=== PATIENT | male | born 1970 | race Caucasian/White ===

== ENCOUNTER 2019-09-13 18:54 | Inpatient (IN) | payer OTHER, SELFPAY ==
--- NOTE | ~2019-09-13 | XR_ITS ---
EXAMINATION: XR chest 1V portable EXAM DATE: 09/13/2019 21:01 INDICATION: Right Thigh necrotizing fasciitis. Preoperative. TECHNIQUE: Portable AP frontal chest x-ray was obtained. Comparison is made to prior examination from 02/09/2017. FINDINGS: The lungs are clear. There are no pleural effusions. Cardiac silhouette is prominent but magnified on this AP technique. There is no pneumothorax suspected. The bones and soft tissues are unremarkable. There is no significant interval change. IMPRESSION: No acute cardiopulmonary findings. Reviewed, dictated and finalized at location G.
--- NOTE | ~2019-09-13 | CT_ITS ---
EXAMINATION: CT pelvis w con EXAM DATE: 09/13/2019 20:12 INDICATION: Right thigh pain. Necrotizing fasciitis. TECHNIQUE: Spiral CT pelvis w con was performed following intravenous injection of 100 mL Omnipaque 3 50. Axial, coronal and sagittal images were reviewed. The dose-length product (DLP) for this examin ation was 2117.24 mGy-cm. The exposure was tailored according to patient size (auto mA exposure cont rol), and iterative reconstruction (ASIR) was used as additional dose reduction technique. There is no prior study for comparison. FINDINGS: In the inner upper most aspect of the right thigh, below the perineum there is a region co ntaining pockets of gas and inflammation measuring 7.4 x 2.0 cm, with overlying skin thickening. Appe arance is consistent with necrotizing fasciitis. I discussed this finding with Shauna Tyler MD at 09/13/2019 20:16 CDT. The bladder and prostate are unremarkable. There is mild scattered colonic diverticulosis. There is no adjacent inflammatory change to suggest diverticulitis. Visualized bowel is unremarkable. There i s no hydronephrosis or pelvic lymphadenopathy. IMPRESSION: Findings consistent with necrotizing fasciitis of the inner upper aspect right thigh. Reviewed, dictated and finalized at location G.
[2019-09-13 19:00] VITALS: BP 174/98; PULSE 120; RESP 20; TEMP 37; O2SAT 97
--- NOTE | 2019-09-13 19:07 | ED.GENADULT ---
HPI - General Adult General Chief complaint: Skin/Abscess/Foreign Body Stated complaint: Boil back of R leg Time Seen by Provider: 09/13/19 19:06 Source: patient and family Mode of arrival: ambulatory Limitations: no limitations History of Present Illness HPI narrative: Patient is a 49-year-old male who presents for evaluation of irritation to her right inner thigh. Patient reports a small boil appeared on his right thigh 3 days ago, the area has become increasingly painful, with clearish drainage, now worsening redness over the right thigh. Patient denies scrotal involvement. No pain with bowel movement. He reports a fever of 101 Fahrenheit today. No nausea or vomiting. Patient is otherwise feeling well. No history of skin infections in the past. Patient states he recently had blood work done by primary care provider and he has not. Patient did take 2 days of doxycycline which he had at home, left over from a sinus infection, which did not seem to improve the area. Related Data Allergies Allergy/AdvReac Type Severity Reaction Status Date / Time No Known Allergies Allergy Verified 09/13/19 19:27 Review of Systems Review of Systems: Narrative: CONSTITUTIONAL: Reports fever EYES: Denies visual changes, redness, or discharge. ENT: Reports sinus congestion, denies sore throat CARDIOVASCULAR: Denies chest pain, palpitations, or edema. RESPIRATORY: Denies cough or dyspnea. GASTROINTESTINAL: Denies abdominal pain, nausea, vomiting, or diarrhea. GENITOURINARY: Denies dysuria or hematuria. SKIN: Reports area of redness, sore to right inner thigh MUSCULOSKELETAL: Denies back pain, joint pain, or myalgia. NEUROLOGIC: Denies headache, numbness, or weakness. [facility] Past Medical History Medical History (Updated 09/13/19 @ 21:02 by Shauna Tyler MD) Asthma Surgical History Surgical History (Updated 09/13/19 @ 19:22 by Shauna Tyler MD) H/O inguinal hernia repair History of vasectomy Social History Social History (Updated 09/13/19 @ 19:22 by Shauna Tyler MD) Smoking status: Never smoker Alcohol intake: current Alcohol use details: social Substance use: never Living arrangements: with family Gender identity (if verbalized by the patient): Male Exam Narrative: Exam Narrative: GENERAL: Awake, alert, conversant HEAD: Normocephalic, atraumatic. EYES: PERRLA and EOMI. ENT: Nares clear, no rhinorrhea or epistaxis. Mucous membranes moist. NECK: Supple. CHEST: No respiratory distress, breathing even and non labored HEART: Regular rate, sinus rhythm ABDOMEN: Obese abdomen, non distended, non tender EXTREMITIES: Normal range of motion. No edema. SKIN: Area of erythema to the right inner thigh approximately 15 cm x 20 cm, no scrotal involvement, no crepitus, area of induration, slight discoloration of skin with serous drainage present. No blistering or bullae. Tender to palpation. No areas of fluctuance. NEURO:No focal deficits. Alert and oriented x3 Course Vital Signs Vital signs: Vital Signs Temperature 37.0 C 09/13/19 19:00 Pulse Rate 120 H 09/13/19 19:00 Respiratory Rate 09/13/19 19:00 Blood Pressure 174/98 H 09/13/19 19:00 Pulse Oximetry 97 09/13/19 19:00 Temperature 37.0 C 09/13/19 19:00 Pulse Rate 120 H 09/13/19 19:00 Respiratory Rate 09/13/19 19:00 Blood Pressure 174/98 H 09/13/19 19:00 Pulse Oximetry 97 09/13/19 19:00 Medical Decision Making MDM Narrative Medical decision making narrative: Patient presented for evaluation of pain, irritation to right inner thigh. At the time of assessment, ABCs are intact, vital signs notable for tachycardia. Patient is otherwise well-appearing, clinical examination is notable for area of cellulitis, induration and tenderness that is very large in diameter to the right medial thigh, no extension into the scrotum. No crepitus. Given location, there is concern for necrotizing fasciitis. Patient states that he
[2019-09-13 19:31] LABS: Basophils Absolute Auto 0.1 K/mm3 (0.0-0.1); Basophils Percent Auto 0.4 % (0.2-1.2); Eosinophils Absolute Auto 0.3 K/mm3 (0-0.3); Eosinophils Percent Auto 2.1 % (0-4.4); Hemoglobin 15.2 g/dL (14.0-18.0); Immature Granulocyte Absolute 0.06 K/mm3 (0.00-0.031); Immature Granulocyte Percent A 0.4 % (0-0.5); Lymphocytes Percent Auto 10.3 % (18.3-44.2); Mean Corpuscular Hemoglobin 29.9 pg (26-34); Mean Corpuscular Volume 90.4 fl (80-100); Mean Platelet Volume 10.1 fl (7.4-10.4); Monocytes Absolute Auto 1.4 K/mm3 (0.1-0.6); Monocytes Percent Auto 8.3 % (2.6-8.5); Neutrophils Percent Auto 78.5 % (45.5-73.1); Platelet Count Result 225 k/mm3 (150-375); Red Blood Count 5.09 M/mm3 (4.6-6.20); Red Cell Distribution Width 12.7 % (11.5-14.5); White Blood Count 16.5 K/mm3 (4.5-10.0)
[2019-09-13 19:42] LABS: Lactic Acid Reflex 1.1 mmol/L (0.7-2.1)
[2019-09-13] MEDS: SODIUM CHLORIDE 0.9% IV 1,000 ML 999 ML IV CONT ×3 (19:47→23:18)
[2019-09-13 19:49] LABS: Blood Urea Nitrogen 7 mg/dL (9-20); Carbon Dioxide 24 mmol/L (22-30); Chloride 101 mmol/L (98-107); Estimated CRCL calculation 165 ml/min; Estimated Glomerular Filt Rate > 60; Glucose 129 mg/dL (75-110); Potassium 3.6 mmol/L (3.4-5.0); Sodium 134 mmol/L (137-145)
[2019-09-13 19:57] LABS: CRP 22.7 mg/dL (<1.0)
[2019-09-13 21:35] VITALS: BP 141/91; PULSE 109; RESP 18; O2SAT 97
[2019-09-13 21:48] VITALS: BMI 61.0
[2019-09-13 21:54] VITALS: BP 137/90; PULSE 109; RESP 20; TEMP 36.6; O2SAT 98; BMI 55.3
[2019-09-13 22:00] VITALS: PULSE 109
--- NOTE | 2019-09-13 22:04 | ADMGEN ---
This patient, Jayna Perez, was admitted to IMU Room 201-01 at 2145. Patient/family oriented to hospital policies and general routines including ID bracelet, bed and alarms, visiting hours, pain management, procedures, bathroom and other care routines, personal items, smoking policy, room service/diet, and visiting hours. Valuables list has been completed. Information on how to activate the Rapid Response Team has been discussed. Patient/Family are encouraged to report perceived risks to care and to ask questions if they do not understand what they are told or what they should do.
[2019-09-13] MEDS: CLINDAMYCIN 900 MG/NS 50 ML 900 MG/50 ML PIGGYBACK 50 MG IVPB (23:17)
[2019-09-13 23:30] VITALS: BP 136/93; PULSE 104; RESP 20; TEMP 36.7; O2SAT 99
[2019-09-13 23:44] LABS: Add Urine Microscopic? NO; Appearance Urine Clear (Clear); Bilirubin Urine Negative (Negative); Blood Urine Negative (Negative); Color Urine Straw (Yellow); Glucose Urine UA Negative (Negative); Ketones Urine Negative (Negative); Leukocyte Esterase Ur Negative LEU/UL (Negative); Nitrate Urine Negative (Negative); Protein Urine Negative (Negative); Specific Grav Ur 1.019 (1.001-1.035); Urobilinogen Urine Negative mg/dL (<2.0)
[2019-09-14] VITALS (19 sets, daily range): BP systolic 123–155; BP diastolic 68–94; PULSE 86–118; RESP 16–24; TEMP 36.2–38.4; O2SAT 94–100
[2019-09-14] MEDS: LACTATED RINGERS 1,000 ML 125 ML IV CONT (01:07)
[2019-09-14 05:00] LABS: Basophils Percent Auto 0.3 % (0.2-1.2); Eosinophils Absolute Auto 0.3 K/mm3 (0-0.3); Eosinophils Percent Auto 2.1 % (0-4.4); Hematocrit 39.7 % (42.0-52.0); Hemoglobin 13.3 g/dL (14.0-18.0); Immature Granulocyte Absolute 0.13 K/mm3 (0.00-0.031); Immature Granulocyte Percent A 0.8 % (0-0.5); Lymphocytes Absolute Auto 1.21 K/mm3 (0.9-3.2); Lymphocytes Percent Auto 7.9 % (18.3-44.2); Mean Corpuscular HGB Conc 33.5 g/dl (32-36); Mean Corpuscular Hemoglobin 30.2 pg (26-34); Mean Corpuscular Volume 90.2 fl (80-100); Monocytes Absolute Auto 1.3 K/mm3 (0.1-0.6); Monocytes Percent Auto 8.5 % (2.6-8.5); Neutrophils Absolute Auto 12.4 K/mm3 (1.3-6.7); Neutrophils Percent Auto 80.4 % (45.5-73.1); Platelet Count Result 189 k/mm3 (150-375); Red Cell Distribution Width 12.7 % (11.5-14.5); White Blood Count 15.4 K/mm3 (4.5-10.0)
[2019-09-14 05:11] LABS: Blood Urea Nitrogen 6 mg/dL (9-20); Calcium 8.6 mg/dL (8.4-10.2); Carbon Dioxide 27 mmol/L (22-30); Chloride 101 mmol/L (98-107); Estimated CRCL calculation 182 ml/min; Estimated Glomerular Filt Rate > 60; Glucose 134 mg/dL (75-110); Potassium 3.5 mmol/L (3.4-5.0); Sodium 136 mmol/L (137-145)
[2019-09-14] MEDS: CLINDAMYCIN 900 MG/NS 50 ML 900 MG/50 ML PIGGYBACK 50 MG IVPB ×2 (06:14→14:02)
--- NOTE | 2019-09-14 08:54 | PM.IMHP ---
H&P: HPI History of Present Illness Chief complaint: Necrotizing Fasciitis Narrative: Jayna Perez is a 49 year old male presenting to ED c/o worsening R inner thigh pain, swelling since last . Pt reports area started as small pimple and has progressively worsened over the weekend. Pt reports fevers and chills over last 48 hours. Pt denies any previous episodes. Review of Systems Constitutional: Constitutional: Reports chills, Reports fatigue and Reports weakness ENT: Reports Normal hearing present Cardiovascular: Cardiovascular: Denies chest pain and Denies palpitations Respiratory: Respiratory: Denies cough and Denies dyspnea Gastrointestinal: Gastrointestinal: Denies abdominal pain, Denies bloating, Denies constipation, Denies diarrhea, Denies nausea and Denies vomiting Genitourinary: Genitourinary: Denies dysuria Musculoskeletal: Musculoskeletal: Reports no additional musculoskeletal complaints Integumentary/Breasts: Skin/Breast: Reports erythema and Denies rash Neurologic: Denies headache(s) Psychiatric: Psychiatric: Denies no additional psychiatric complaints PMF Past Medical History Medical History Asthma Surgical History Surgical History H/O inguinal hernia repair History of vasectomy Family History Family History Mother Diabetes mellitus Grandparent Diabetes mellitus Father Coronary artery disease Social History Social History Smoking status: Never smoker Alcohol intake: former Alcohol use details: social Substance use: never Living arrangements: with family Gender identity (if verbalized by the patient): Male Spiritual care concerns: No Meds Home Medications and Allergies Home Medications Medication Instructions Recorded Confirmed Type fluticasone propionate [Flonase 50 mcg INTRANASAL DAILY 09/13/19 09/13/19 History Allergy Relief] losartan 100 mg PO DAILY 09/13/19 09/13/19 History Allergies Allergy/AdvReac Type Severity Reaction Status Date / Time No Known Allergies Allergy Verified 09/13/19 19:27 Vital Signs Vital Signs - 24 hr 09/13/19 19:00 09/13/19 21:35 09/13/19 21:54 Temperature 37.0 C 36.6 C Pulse Rate 120 H 109 H 109 H Respiratory Rate 20 18 20 Blood Pressure 174/98 H 141/91 H 137/90 Pulse Oximetry 97 97 98 09/13/19 22:00 09/13/19 23:30 09/14/19 00:00 Temperature 36.7 C Pulse Rate 109 H 104 H 101 H Respiratory Rate 20 Blood Pressure 136/93 H Pulse Oximetry 99 09/14/19 02:00 09/14/19 04:00 09/14/19 06:00 Temperature 36.7 C Pulse Rate 105 H 96 96 Respiratory Rate 20 Blood Pressure 123/69 Pulse Oximetry 97 Exam Const: General: no acute distress HENMT: Mouth: Yes moist mucous membranes Eyes: Pupils: Equal, round and reactive pupils present EOM: EOMs intact bilaterally Neck: Neck: supple Lymphatic: lymphadenopathy not noted Resp: Auscultation: clear to auscultation bilaterally Cardio: Rate: regular rate Rhythm: regular rhythm GI: GI Palp: Yes Soft to palpation, No Tenderness to palpation present (GI) and No Guarding due to palpation present (GI) Skin: Other: R inner thigh c large area of induration, cellulitis, no drainage, no crepitus, +TTP Extrem: General: normal exam except as noted Psych: Mental Status: mental status grossly normal H&P: Results Labs Labs: Short CBC 09/13/19 09/14/19 Range/Units 19:24 04:21 WBC 16.5 H 15.4 H (4.5-10.0) K/mm3 Hgb 15.2 13.3 L (14.0-18.0) g/dL Hct 46.0 39.7 L (42.0-52.0) % Plt Count 225 189 (150-375) k/mm3 [facility] 09/13/19 09/14/19 19:24 04:21 Sodium 134 L 136 L Potassium 3.6 3.5 Chloride 101 101 Carbon Dioxide 24 27 BUN 7 L 6 L Creatinine 0.80 0.70 Glucose 129 H 134 H
--- NOTE | 2019-09-14 10:25 | WPDANESEPPF ---
Anes - Initial Pre Proc Eval Procedure: Operation Date: 09/14/19 10:30 Proposed Procedures p RIGHT THIGH DEBRIDEMENT - Stacey Monahan MD Date/Time: 09/14/19 10:25 Surgeon: Stacey Monahan MD Pre Op Diagnosis: Necrotizing Fasciitis Patient Data Age: 49 Gender: M Height: 5 ft 10 in Weight: 176 kg Last Vital Signs Temp 38.4 C H 09/14/19 09:52 Pulse 118 H 09/14/19 09:52 Resp 20 09/14/19 09:52 BP 129/89 09/14/19 09:52 Pulse Ox 97 09/14/19 09:52 Allergies Allergy/AdvReac Type Severity Reaction Status Date / Time No Known Allergies Allergy Verified 09/14/19 09:49 Home Medications Medication Instructions Recorded Confirmed Type fluticasone propionate [Flonase 50 mcg INTRANASAL DAILY 09/13/19 09/13/19 History Allergy Relief] losartan 100 mg PO DAILY 09/13/19 09/13/19 History Laboratory Tests 09/13/19 09/13/19 09/13/19 19:23 19:24 19:24 WBC 16.5 K/mm3 H K/mm3 (4.5-10.0) RBC 5.09 M/mm3 M/mm3 (4.6-6.20) Hgb 15.2 g/dL g/dL (14.0-18.0) Hct 46.0 % % (42.0-52.0) MCV 90.4 fl fl (80-100) MCH 29.9 pg pg (26-34) MCHC 33.0 g/dl g/dl (32-36) RDW 12.7 % % (11.5-14.5) Plt Count 225 k/mm3 k/mm3 (150-375) MPV 10.1 fl fl (7.4-10.4) Immature Gran % (Auto) 0.4 % % (0-0.5) Neut % (Auto) 78.5 % H % (45.5-73.1) Lymph % (Auto) 10.3 % L % (18.3-44.2) [place] % (Auto) 8.3 % % (2.6-8.5) Eos % (Auto) 2.1 % % (0-4.4) Baso % (Auto) 0.4 % % (0.2-1.2) Lymph # (Auto) 1.70 K/mm3 K/mm3 (0.9-3.2) [place] # (Auto) 1.4 K/mm3 H K/mm3 (0.1-0.6) Eos # (Auto) 0.3 K/mm3 K/mm3 (0-0.3) Baso # (Auto) 0.1 K/mm3 K/mm3 (0.0-0.1) Abs Immat Gran (auto) 0.06 K/mm3 H K/mm3 (0.00-0.031) Absolute Neuts (auto) 13.0 K/mm3 H K/mm3 (1.3-6.7) Absolute Nucleated RBC 0.0 K/mm3 K/mm3 (0.0-0.012) Nucleated RBC % 0.0 % % (0.0-0.2) Sodium 134 mmol/L L mmol/L (137-145) Potassium 3.6 mmol/L mmol/L (3.4-5.0) Chloride 101 mmol/L mmol/L (98-107) Carbon Dioxide 24 mmol/L mmol/L (22-30) BUN 7 mg/dL L mg/dL (9-20) Creatinine 0.80 mg/dL mg/dL (0.7-1.3) Estim Creat Clear Calc 165 ml/min ml/min Estimated GFR > 60 (59 - ) Glucose 129 mg/dL H mg/dL (75-110) Lactic Acid 1.1 mmol/L mmol/L (0.7-2.1) Calcium 9.0 mg/dL mg/dL (8.4-10.2) C-Reactive Protein 22.7 mg/dL H mg/dL (<1.0) Urine Color Urine Appearance Urine pH Ur Specific [place] Urine Protein Urine Glucose (UA) Urine Ketones Ur Blood (Man) Urine Nitrate Urine Bilirubin Urine Urobilinogen Leukocyte Esterase Rfl Blood Type Antibody Screen 09/13/19 09/13/19 09/14/19 21:37 23:15 04:21 WBC 15.4 K/mm3 H K/mm3 (4.5-10.0) RBC 4.40 M/mm3 L M/mm3 (4.6-6.20) Hgb 13.3 g/dL L g/dL (14.0-18.0) Hct 39.7 % L % (42.0-52.0) MCV 90.2 fl fl (80-100) MCH 30.2 pg pg (26-34) MCHC 33.5 g/dl g/dl (32-36) RDW 12.7 % % (11.5-14.5) Plt Count 189 k/mm3 k/mm3 (150-375) MPV 10.0 fl fl (7.4-10.4) Immature Gran % (Auto) 0.8 % H % (0-0.5) Neut % (Auto) 80.4 % H % (45.5-73.1) Lymph % (Auto) 7.9 % L % (18.3-44.2) [place] % (Auto) 8.5 % % (2.6-8.5) Eos % (Auto) 2.1 % % (0-4.4) Baso % (Auto) 0.3 % % (0.2-1.2) Lymph # (Auto) 1.21 K/mm3 K/mm3 (0.9-3.2) [place] # (Auto) 1.3 K/mm3 H K/mm3 (0.1-0.6) Eos # (Auto) 0.3 K/mm3 K/mm3 (0-0.3)
--- NOTE | 2019-09-14 10:58 | SUR.PREOP ---
pt informed of unexpected delay w/procedure/acknowledges understanding/family notified via telephone of delay and also acknowledges understanding.
--- NOTE | 2019-09-14 12:11 | PC.NURSE ---
0935- to OR via bed accompanied by RN's-
--- NOTE | 2019-09-14 13:43 | SUR.PREOP ---
pt voided per urinal. sitting at edge of bed. comfort measures provided. denies needs
[2019-09-14] MEDS: LACTATED RINGERS 1,000 ML 30 ML IV CONT (14:10)
--- NOTE | 2019-09-14 14:18 | WPDHPUPDATE1 ---
History and Physical Update Update Date/Time: 09/14/19 14:18 History and Physical has been reviewed, including an updated exam of the patient. There are NO changes in the patient's condition. I will be assuming care for the patient for Dr. Monahan. I have reviewed the CT and findings with the patient and agree with the plan. Will proceed with Debridement of right thigh wound. Risks, benefits, and alternatives have been discussed and questions answered. Patient agrees to proceed with procedure.
[2019-09-14] MEDS: BUPIVACAINE/EPINEPHRINE 0.5% 30 ML VIAL INFILTRATE (14:42)
--- NOTE | 2019-09-14 14:59 | SUR.OPER ---
culture sent with jessika Luz and received in pathology by Robyn
--- NOTE | 2019-09-14 15:15 | P.OP_ITS ---
Procedure Note - Detailed Date of procedure: 09/14/19 Pre-op diagnosis: Necrotizing Fasciitis Post-op diagnosis: other (Right inner thigh abscess) Procedure performed: I&D right thigh abscess Description of procedure: * Procedure as well as risks, benefits, and alternatives were discussed with the patient. Written consent was obtained and placed in chart prior to procedure. Patient was brought back to surgical suite. He was placed supine on operating table. Time-out was done to confirm patient and procedure. He was then intubated by the Anesthesia Department. He was then repositioned into dorsal lithotomy position. His right inner thigh and perineal region was prepped and draped in sterile fashion using chlorhexidine prep. 0.5% bupivacaine with epinephrine was infiltrated locally over the area of induration and fluctuance. A 4 cm incision was made with a 15 blade scalpel directly over the area of fluctuance. There was significant induration to the subcutaneous fat, but no evidence of necrosis. The diss ection was carefully carried down with blunt dissection and electrocautery to the the point where I identified the abscess. The abscess was opened all the way with electrocautery and blunt dissection. A culture swab was used to taken aerobic and anaerobic culture. The pocket did appear to track anteriorly, therefore the incision was extended another 4 cm anterior using a 15 blade scalpel. The abscess cavity was probed for any loculations which were broken up using blunt dissection. Electrocautery was then used for hemostasis. The abscess cavity was then irrigated copiously with sterile s ca. No further purulence drainage was identified. Hemostasis appeared adequate. The wound was then packed with 1 in iodoform gauze. Fluff gauze ABD pad and mesh underwear was then applied. The patient was then awakened from anesthesia, extubated, and transferred to recovery. Anesthesia: GLMA and local (0.5% bupivicaine with epi) Surgeon: Kwabena Lara DO Estimated blood loss (mL): 20 Packing: Yes (1 iodoform gauze) Complications: No immediate complications Condition: stable Disposition: floor Findings: This is a 49-year-old man who presented to the emergency department overnight with complaints of worsening pain and swelling in his right inner thigh. He states that this started out as a boil, and gradually progressed from there. He does also report placing a heating pad over this area and fallen asleep with the heating pad in place, and he thinks he may have caused a minor burn in this area. He has never had anything like this in the past. A CT in the emergency department showed findings concerning for a soft tissue infection with a pocket with gas present. He was admitted for possible necrotizing fasciitis in for further treatment. Discussions were made with the patient about treatment options, and decision was made to proceed with debridement of right inner thigh wound. An incision was made over the area of the suspected infection in the right inner thigh region. There did not appear to be any evidence of necrotizing fasciitis, but there did appear to be a sizable abscess within the subcutaneous space. This patient is morbidly obese with a BMI of greater than 55 and has a large amount of subcu adipose tissue. The abscess was adequately opened up for a length of approximately 4 in and the purulence fluid was drained. The wound was then packed with 1 in iodoform gauze. Cultures were taken for aerobic and anaerobic culture and sensitivity.
--- NOTE | 2019-09-14 15:54 | SUR.PHASEI ---
1935 sbar faxed floor notified
[2019-09-14] MEDS: LACTATED RINGERS 1,000 ML 100 ML IV CONT (17:40)
--- NOTE | 2019-09-14 19:48 | PC.NURSE ---
1700- @ [id number] returned to room-post surgery- dressing to right groin covered with abd dressing- pt a/o x3 denies pain at this time- vss
[2019-09-14] MEDS: ENOXAPARIN 30 MG/0.3 ML SYRINGE SUB-Q (20:23)
[2019-09-15] VITALS (18 sets, daily range): BP systolic 119–136; BP diastolic 70–91; PULSE 85–107; RESP 20–24; TEMP 36–36.7; O2SAT 94–99
[2019-09-15 08:11] LABS: Hematocrit 39.9 % (42.0-52.0); Mean Corpuscular HGB Conc 32.6 g/dl (32-36); Mean Corpuscular Hemoglobin 29.7 pg (26-34); Mean Corpuscular Volume 91.3 fl (80-100); Mean Platelet Volume 9.8 fl (7.4-10.4); Platelet Count Result 214 k/mm3 (150-375); Red Blood Count 4.37 M/mm3 (4.6-6.20); Red Cell Distribution Width 12.9 % (11.5-14.5); White Blood Count 10.1 K/mm3 (4.5-10.0)
[2019-09-15 08:24] LABS: Blood Urea Nitrogen 7 mg/dL (9-20); Calcium 8.4 mg/dL (8.4-10.2); Carbon Dioxide 30 mmol/L (22-30); Chloride 100 mmol/L (98-107); Estimated CRCL calculation 161 ml/min; Estimated Glomerular Filt Rate > 60; Glucose 114 mg/dL (75-110); Potassium 3.8 mmol/L (3.4-5.0); Sodium 135 mmol/L (137-145)
--- NOTE | 2019-09-15 08:57 | WPDANESPN ---
Anes - Prog Note Post-Op Date/Time: 09/15/19 08:57 Cardiovascular status: normal Respiratory status: normal Airway patency: baseline Mental status: baseline Post-Op hydration status: normal Vital Signs: Last Vital Signs Temp 36.2 C L 09/15/19 08:24 Pulse 101 H 09/15/19 08:24 Resp 22 H 09/15/19 08:24 BP 121/79 09/15/19 08:24 Pulse Ox 97 09/15/19 08:24 I/O: Intake & Output 09/14/19 09/15/19 09/15/19 23:59 07:59 15:59 Intake Total 1340 Output Total 600 1200 500 Balance 740 -1200 -500 Laboratory Tests 09/15/19 08:01 09/15/19 08:01 09/15/19 09/15/19 09/15/19 08:01 08:01 08:01 WBC 10.1 H RBC 4.37 L Hgb 13.0 L Hct 39.9 L MCV 91.3 MCH 29.7 MCHC 32.6 RDW 12.9 Plt Count 214 MPV 9.8 Sodium 135 L Potassium 3.8 Chloride 100 Carbon Dioxide 30 BUN 7 L Creatinine 0.80 Estim Creat Clear Calc 161 Estimated GFR > 60 Glucose 114 H Calcium 8.4 Vancomycin Trough Pending Post-procedural complaints: none Patient Feedback: Patient satisfied with anesthetic care.
[2019-09-15 09:20] LABS: Vancomycin Trough 5.7 ug/mL (10.0-20.0)
[2019-09-15] MEDS: LOSARTAN POTASSIUM 100 MG TABLET PO (09:23)
[2019-09-15] MEDS: FLUTICASONE PROPIONATE 0.05% NA SPR 16 GM BTL (*BKC) 1 SPRAY NASAL (09:23)
[2019-09-15] MEDS: ENOXAPARIN 30 MG/0.3 ML SYRINGE SUB-Q ×2 (09:23→19:56)
--- NOTE | 2019-09-15 10:37 | PM.PNGS ---
Progress Note: A&P Assessment and Plan (1) Abscess of right thigh: Code(s): L02.415 - Cutaneous abscess of right lower limb Status: Acute Assessment and Plan: POD#1 s/p I&D right thigh abscess and patient doing well. Preliminary abscess culture shows mixed bacterial sapna, final results pending. Continue IV antibiotics. Will change the dressing with Dr. Lara later today. Wound nurse consulted and appreciate recommendations. Does not appear that we can initiate wound VAC therapy due to the location of this wound and being unable to keep the wound VAC dressing intact. Will continue with dressing changes daily with iodoform packing. May be downgraded to the medical floor. If the patient's pain is well-controlled and he continues to improve, will hopefully be discharge in the next 1-2 days. (2) Sepsis: Qualifiers: Sepsis acute organ dysfunction status: without acute organ dysfunction Sepsis type: sepsis due to unspecified organism Qualified Code(s): A41.9 - Sepsis, unspecified organism Code(s): A41.9 - Sepsis, unspecified organism Status: Acute Assessment and Plan: Met criteria on admission. WBC trending down to 10,000 and patient afebrile. Still mild tachycardia. Blood cultures pending. Continue IV antibiotics. (3) Hypertension: Code(s): I10 - Essential (primary) hypertension Status: Acute (4) Asthma: Code(s): J45.909 - Unspecified asthma, uncomplicated Status: Acute Additional Plan Discussed plan of care with Dr. Lara. Subjective Subjective Date/Time Seen: 09/15/19 10:37 Post Op day: 1 (I and D of right thigh abscess) Patient reports: no new complaints, feels better and pain is less Interval history: Reports feeling well today. Remains afebrile and white blood cell count down to 10,000. Patient reports no pain while sitting up in the chair. He reports having some pain during his dressing changes morning. No other complaints at this time. Review of Systems Review of Systems: All systems reviewed & are unremarkable except as noted in HPI and below Exam Const: General: comfortable, no acute distress, alert and awake Nutritional Appearance: obese morbidly obese Orientation/consciousness: patient oriented x3 Limitations: no limitations Resp: Effort & Inspection: normal respiratory effort and able to speak in complete sentences Skin: General skin exam: normal color Other: Right thigh dressing clean dry and intact. Neuro: General: moves all extremities and no focal motor deficits Extrem: General: no calf tenderness Psych: Mental Status: mental status grossly normal Affect: normal affect Attitude: cooperative Thought process: Normal thought process present Insight: Good insight present (Psych) Judgement: Good judgement present (Psych) Objective Data Vital Signs Vital Signs: Vital Signs - 24 hr 09/14/19 15:10 09/14/19 15:25 09/14/19 15:38 Temperature 36.3 C L Pulse Rate 96 86 114 H Respiratory Rate 16 20 20 Blood Pressure 152/88 H 142/94 H Pulse Oximetry 99 100 96 09/14/19 15:50 09/14/19 16:05 09/14/19 16:45 Temperature 36.8 C Pulse Rate 97 109 H 113 H Respiratory Rate 20 20 22 H Blood Pressure 125/91 H 135/76 123/78 Pulse Oximetry 94 96 98 09/14/19 17:15 09/14/19 17:45 09/14/19 18:00 Temperature 36.8 C Pulse Rate 115 H 99 104 H Respiratory Rate 18 20 Blood Pressure 125/79 144/68 H Pulse Oximetry 96 95 09/14/19 19:23 09/14/19 20:00 09/14/19 21:54 Temperature 36.5 C 36.2 C L Pulse Rate 107 H 106 H 97 Respiratory Rate 22 H 22 H 24 H Blood Pressure 137/80 142/72 H Pulse Oximetry 97 97 99 09/14/19 22:00 09/15/19 00:00 09/15/19 01:59 Temperature Pulse Rate 98 106 H 107 H Respiratory Rate 24 H Blood Pressure Pulse Oximetry 99 09/15/19 03:42 09/15/19 04:00 09/15/19 06:00 Temperature 36.6 C Pulse Rate 95 95 104 H Respiratory Rate 20 20 Blood Pressure 126/91 H Pulse Oximetry
[2019-09-15] MEDS: HYDROMORPHONE HCL 1 MG/ML INJ IV PUSH (13:33)
[2019-09-15] MEDS: IBUPROFEN 600 MG TABLET PO (17:16)
[2019-09-16 02:00] VITALS: PULSE 98
[2019-09-16 04:00] VITALS: BP 125/66; PULSE 82; PULSE 88; RESP 20; TEMP 36.6; O2SAT 95; O2SAT 99
[2019-09-16 06:00] VITALS: PULSE 92
[2019-09-16 08:00] VITALS: BP 141/87; PULSE 82; PULSE 85; RESP 20; TEMP 35.8; O2SAT 95
[2019-09-16] MEDS: FLUTICASONE PROPIONATE 0.05% NA SPR 16 GM BTL (*BKC) 1 SPRAY NASAL (09:06)
[2019-09-16] MEDS: ENOXAPARIN 30 MG/0.3 ML SYRINGE SUB-Q (09:06)
[2019-09-16] MEDS: LOSARTAN POTASSIUM 100 MG TABLET PO (09:07)
[2019-09-16 09:41] LABS: Vancomycin Trough 10.2 ug/mL (10.0-20.0)
[2019-09-16 10:00] VITALS: PULSE 70
--- NOTE | 2019-09-16 11:00 | PM.DS ---
DS: Diagnosis Admitting Diagnosis Admitting Diagnosis: Necrotizing fasciitis Discharge Diagnosis (1) Abscess of right thigh: Code(s): L02.415 - Cutaneous abscess of right lower limb Status: Acute (2) Hypertension: Code(s): I10 - Essential (primary) hypertension Status: Acute (3) Asthma: Code(s): J45.909 - Unspecified asthma, uncomplicated Status: Acute (4) Morbid obesity with BMI of 50.0-59.9, adult: Code(s): E66.01 - Morbid (severe) obesity due to excess calories; Z68.43 - Body mass index (BMI) 50.0-59.9, adult Status: Acute DS: Summary Hospital Course Reason for hospitalization: Jayna Perez is a 49 year old male who presented to ED c/o worsening R inner thigh pain, swelling. Pt reports area started as small pimple and had progressively worsened. Pt reports fevers and chills for about 48 hours. Emergency department workup showed evidence of Necrotizing fasciitis of the inner upper right thigh with leukocytosis. The decision was made to admit the patient to our service. Hospital Course: Decision was made to admit the patient and start him on IV antibiotics. He was sent to the OR for suspected debridement of the right inner upper thigh. He had an incision and drainage of a right inner upper thigh abscess by Dr. Lara on 09/13/2019 (see operative note for full report). The dressing was changed postop day 1 and the patient was having a significant amount of pain still. The patient remained in the hospital another night for both pain control and IV antibiotics. He was switched from hydrocodone to oxycodone, which he was given prior to his dressing change morning. The patient reports pain is improved today and the only time he has any pain in his right groin is when the dressing is changed or the area is touched. He tolerated the dressing change and the incision looked good today. Discussed the case with Dr. Lara and shavonne to discharge the patient today. Will switch the patient over to oral antibiotics and sent him home. His has agreed to do dressing changes at home. Patient has no other complaints at this time. All discharge instructions were discussed with him in detail and questions were answered. Status at Discharge Functional status at discharge: independent ambulation Overall status at discharge: patient is progressing back to baseline Time Spent with Patient Time attestation: Total time spent providing and/or coordinating discharge services: Time spent: Greater than 30 minutes Exam Const: General: cooperative, comfortable, no acute distress, alert and awake Skin: Other: Right groin incision healing well with granulation tissue noted and no purulent drainage. Overall induration and erythema improved. Neuro: General: moves all extremities and no focal motor deficits Extrem: General: normal to inspection, no calf tenderness and no edema Psych: Mental Status: mental status grossly normal Affect: normal affect Thought process: Normal thought process present Insight: Good insight present (Psych) Judgement: Good judgement present (Psych) DS: Data Data Completed and Pending Labs on day of discharge: Labs from last 24 hours 09/16/19 08:45 Vancomycin Trough 10.2 Preliminary micro results at discharge 09/14/19 14:50 Anaerobic Culture - Preliminary Abscess Aerobic Culture - Preliminary 09/13/19 19:24 Blood Culture - Preliminary Blood 09/13/19 19:23 Blood Culture - Preliminary Blood Discharge Plan Discharge Attending physician on discharge: Kwabena Lara Discharging Clinician: Jyoti Bustillo Anticipated Discharge Date/Time: 09/16/19 12:00 Patient Disposition: Home, Self-Care Activity: may shower Diet: heart healthy and low fat Wound Care Instructions: change dressing daily and other - see discharge instructions Discharge Instructions: Change right groin dressing once daily - pack the incision with 1 inch i
[2019-09-16 12:00] VITALS: BP 125/86; PULSE 96; RESP 20; TEMP 36.1; O2SAT 98
== END 2019-09-16 13:10 | disposition home or self-care (01) | DRG 580 ==
LOC: ANHED 20:39 → ANHIMU 20:49
PROVIDERS: Family Medicine; Surgery; Admitting Provider Surgery; Emergency Provider Emergency Medicine; PCP Physician Assistant; Visit Provider Surgery
PROC: 0J9L0ZZ Drainage of Right Upper Leg Subcutaneous Tissue and Fascia, Open Approach (ICD-10-PCS; principal; 2019-09-14 15:00)
DX: L02.415 Cutaneous abscess of right lower limb (principal); Z68.43 Body mass index [BMI] 50.0-59.9, adult; E66.01 Morbid (severe) obesity due to excess calories; I10 Essential (primary) hypertension; J45.909 Unspecified asthma, uncomplicated; Z79.899 Other long term (current) drug therapy
CPT/HCPCS: 36415; 71045; 72193; 80048; 80202; 81003; 83605; 85025; 85027; 86140; 86850; 86900; 86901; 87040; 87070; 87075; 87076; 87205; 96361; 96365; 96375; 99285; A9270; J0131; J0743; J1170; J1650; J2250; J3010; J3370; J7030; J7120; Q9967

== ENCOUNTER 2019-10-02 17:43 | Emergency (ER) | payer OTHER, SELFPAY ==
[2019-10-02 17:53] VITALS: BP 125/97; PULSE 105; RESP 18; TEMP 36.3; O2SAT 97
--- NOTE | 2019-10-02 18:23 | ED.WOUNDLAC ---
HPI - Wound/Laceration General Chief Complaint: Wound/Laceration Stated Complaint: boil on back Time Seen by Provider: 10/02/19 18:05 Source: patient Mode of arrival: ambulatory Limitations: no limitations History of Present Illness HPI narrative: This is a 49-year-old male that presents to the emergency department for a cyst on his left upper back that he noticed yesterday. Reports the area is red and painful. Denies any drainage from the area. Denies fever. Related Data Home Medications Medication Instructions Recorded Confirmed fluticasone propionate [Flonase 50 mcg INTRANASAL DAILY 09/13/19 09/13/19 Allergy Relief] losartan 100 mg PO DAILY 09/13/19 09/13/19 Allergies Allergy/AdvReac Type Severity Reaction Status Date / Time Sulfa (Sulfonamide Allergy Mild Rash Verified 09/21/19 11:28 Antibiotics) Review of Systems Review of Systems: Narrative: CONSTITUTIONAL: Denies fever SKIN: Reports cyst All systems reviewed & are unremarkable except as noted in HPI and below PMFSH Past Medical History Medical History (Updated 10/02/19 @ 19:42 by Mirian Su PA-C) Allergy to sulfa drugs Asthma Surgical History Surgical History H/O inguinal hernia repair History of vasectomy Social History Social History Smoking status: Never smoker Alcohol intake: former Substance use: never Gender identity (if verbalized by the patient): Male Spiritual care concerns: No Exam Narrative: Exam Narrative: GENERAL: Well-appearing, obese, and in no acute distress. HEAD: Normocephalic, atraumatic. EYES: EOMI. CHEST: Clear to auscultation. No respiratory distress. No wheezes rales or rhonchi HEART: Regular rate and rhythm. No murmur heard. Normal peripheral pulses. BACK: Left upper back with 3cm area of erythema and edema, no fluctuance to suggest abscess EXTREMITIES: Normal range of motion. No edema. SKIN: Warm, dry, no rash. NEURO: No focal deficits. Alert and oriented x3. PSYCH: Normal mood and affect Course Vital Signs Vital signs: Vital Signs Temperature 97.3 F L 10/02/19 17:53 Pulse Rate 105 H 10/02/19 17:53 Respiratory Rate 18 10/02/19 17:53 Blood Pressure 125/97 H 10/02/19 17:53 Pulse Oximetry 97 10/02/19 17:53 Temperature 97.3 F L 10/02/19 17:53 Pulse Rate 105 H 10/02/19 17:53 Respiratory Rate 18 10/02/19 17:53 Blood Pressure 125/97 H 10/02/19 17:53 Pulse Oximetry 97 10/02/19 17:53 MDM - Wound/Laceration MDM Narrative Medical decision making narrative: Patient presents the emergency department for small area of cellulitis to the left upper back that he noticed yesterday. No fluctuance to suggest abscess. Patient is afebrile and nontoxic-appearing. He will be started on oral antibiotics. Patient is to follow-up with his primary care doctor. He was given warnings to return to the ER Critical Care Time Critical Care Time Critical Care Time: No Discharge Plan Discharge Clinical Impression: Cellulitis Qualifiers: Site of cellulitis: trunk Site of cellulitis of trunk: back Qualified Code(s): L03.312 - Cellulitis of back [any part except buttock] Patient Disposition: Home, Self-Care Condition: Stable Instructions: Antibiotic Form, Cellulitis (ED) Additional Instructions: Return to the emergency department if you experience fever, increasing redness and swelling of your wound, or any other symptoms that are concerning to you Take antibiotic as prescribed Follow-up with your primary care doctor Prescriptions: New clindamycin HCl 300 mg capsule 300 mg PO Q6H 7 Days Qty: 28 RF: 0 No Action oxycodone-acetaminophen 5-325 mg Tablet 1 tablet PO Q4H PRN (Reason: Pain Rated 7-10) Qty: 14 RF: 0 losartan 100 mg tablet 100 mg PO DAILY RF: 0 fluticasone propionate [Flonase Allergy Relief] 50 mcg/actuation spray,
[2019-10-02 19:50] VITALS: BP 169/112; PULSE 106; RESP 16; TEMP 36.6; O2SAT 99
== END 2019-10-02 20:05 | disposition home or self-care (01) ==
PROVIDERS: Emergency Provider Emergency Medicine; PCP Physician Assistant
DX: L03.312 Cellulitis of back [any part except buttock and flank] (principal); J45.909 Unspecified asthma, uncomplicated
CPT/HCPCS: 99283

== ENCOUNTER 2019-10-05 07:36 | Outpatient (RCR) | payer OTHER, SELFPAY ==
--- NOTE | 2019-09-21 11:19 | P.PNWOUND_ITS ---
Wound Care Note Date/Time: 09/21/19 11:19 History: s/p I&D right inner thigh abscess 09/14/19 Wound history: Patient has been doing daily packing changes with 1 iodoform gauze. Wound approximation: No Wound width: 1.5cm Wound length: 5cm Wound depth: 7cm Drainage: serosanguinous, scant yellow Surrounding tissue appearance: healthy Percentage granulation tissue: 100% Dressings: 1 iodoform gauze with silver gel Assessment and Plan Assessment and plan (1) Abscess of right thigh: Code(s): L02.415 - Cutaneous abscess of right lower limb Status: Acute Assessment and Plan: * Continue local care with packing changes. Add silver gel to daily regimen. Will reassess in Wound Clinic in 2 weeks. (2) Allergy to sulfa drugs: Code(s): Z88.2 - Allergy status to sulfonamides status Status: Acute Assessment and Plan: * Patient just noticed a rash developing today. He probably has a sulfa allergy. Told patient to discontinue Bactrim. Shouldn't need continued oral antibiotics. Just local wound care. Review of Systems Review of Systems: All systems reviewed & are unremarkable except as noted in HPI and below Constitutional: Constitutional: Denies chills and Denies fever(s) Exam Const: General: no acute distress Skin: Wounds: wounds noted right upper leg without odor and open
[2019-09-21 13:36] VITALS: BMI 58.1
--- NOTE | 2019-10-05 12:44 | P.PNWOUND_ITS ---
Wound Care Note Date/Time: 10/05/19 12:44 History: s/p I&D right inner thigh abscess 09/14/19 Wound history: Daily dressing changes at home with 1 iodoform gauze and silver gel. Wound Clinic visits every 2 weeks. Patient reports he had another boil develop on his right upper back and went to the ED 2 days ago. No I&D was performed, but he was placed on oral antibiotics again. Wound approximation: No Drainage: serosanguinous Surrounding tissue appearance: healthy Tunneling: none Percentage granulation tissue: 100% Assessment and Plan Assessment and plan (1) Abscess of right thigh: Code(s): L02.415 - Cutaneous abscess of right lower limb Status: Acute Assessment and Plan: * Will have patient continue iodoform packing changes daily. He does not need to apply silver gel unless he develops discoration to the drainage again. Follow up in 2 more weeks. Review of Systems Constitutional: Constitutional: Denies chills and Denies fever(s) Exam Skin: Other: Right groin wound appears to be closing without any evidence of tracking or purulent drainage. 2cm area of mild induration and erythema without fluctuance on right upper back just below scapula--likely an early abscess or infected cyst.
--- NOTE | 2019-10-19 10:06 | PCWOUND ---
WOCN NOTE patient called to cancel appointment for 10/20/19. States there is only an inch left and there is no drainage coming from area. Instructed patient to contact wound center for any questions or concerns. Informed Dr. Lara's office of cancellation.
== END 2019-12-02 10:56 | disposition home or self-care (01) ==
LOC: ANHWOC 07:36
PROVIDERS: PCP Physician Assistant; Visit Provider Surgery
DX: L02.415 Cutaneous abscess of right lower limb (principal)
CPT/HCPCS: 99212; G0463

== ENCOUNTER 2019-11-01 14:07 | Emergency (ER) | payer OTHER, SELFPAY ==
[2019-11-01 14:17] VITALS: BP 148/94; PULSE 98; RESP 24; TEMP 36.8; O2SAT 98
--- NOTE | 2019-11-01 14:25 | ECG_ITS ---
Measurements Intervals [place] Rate: 90 P: 7 OR: 169 QRS: 31 QRSD: 91 T: 36 QT: 353 QTc: 434 Interpretive Statements SINUS RHYTHM BASELINE WANDER- I, II, AVR, AVL, AVF, V1-V6 BORDERLINE ECG Electronically Signed On 11-01-2019 17:11:46 CDT by Cayden Schmitz D.O.
[2019-11-01 14:32] VITALS: BP 150/98; PULSE 88; RESP 18; O2SAT 96
[2019-11-01 14:56] LABS: Basophils Absolute Auto 0.1 K/mm3 (0.0-0.1); Basophils Percent Auto 0.6 % (0.2-1.2); Eosinophils Absolute Auto 0.5 K/mm3 (0-0.3); Eosinophils Percent Auto 5.4 % (0-4.4); Hematocrit 42.7 % (42.0-52.0); Hemoglobin 14.1 g/dL (14.0-18.0); Immature Granulocyte Absolute 0.05 K/mm3 (0.00-0.031); Immature Granulocyte Percent A 0.5 % (0-0.5); Lymphocytes Absolute Auto 2.07 K/mm3 (0.9-3.2); Lymphocytes Percent Auto 21.8 % (18.3-44.2); Mean Corpuscular Hemoglobin 29.7 pg (26-34); Mean Corpuscular Volume 90.1 fl (80-100); Mean Platelet Volume 10.3 fl (7.4-10.4); Monocytes Absolute Auto 0.7 K/mm3 (0.1-0.6); Monocytes Percent Auto 7.3 % (2.6-8.5); Neutrophils Absolute Auto 6.1 K/mm3 (1.3-6.7); Neutrophils Percent Auto 64.4 % (45.5-73.1); Platelet Count Result 237 k/mm3 (150-375); Red Blood Count 4.74 M/mm3 (4.6-6.20); Red Cell Distribution Width 13.2 % (11.5-14.5); White Blood Count 9.5 K/mm3 (4.5-10.0)
[2019-11-01 15:06] LABS: Partial Thromboplastin Time 25.5 SECONDS (22.3-36.8); Prothrombin Time 12.7 Seconds (11.1-14.7)
[2019-11-01 15:10] LABS: Blood Urea Nitrogen 14 mg/dL (9-20); Calcium 9.1 mg/dL (8.4-10.2); Carbon Dioxide 29 mmol/L (22-30); Chloride 100 mmol/L (98-107); Estimated CRCL calculation 146 ml/min; Estimated Glomerular Filt Rate > 60; Glucose 107 mg/dL (75-110); Potassium 4.2 mmol/L (3.4-5.0); Sodium 135 mmol/L (137-145)
--- NOTE | 2019-11-01 15:12 | ED.NEUROSD ---
HPI - Neuro Symptoms/Deficit General Chief Complaint: Neuro Symptoms/Deficit <Vivek Xie PA-C - Last Filed: 11/01/19 16:39> Stated Complaint: numbness in extremities <Vivek Xie PA-C - Last Filed: 11/01/19 16:39> Time Seen by Provider: 11/01/19 14:14 <Vivek Xie PA-C - Last Filed: 11/01/19 16:39> Source: patient and family <Vivek Xie PA-C - Last Filed: 11/01/19 16:39> Mode of arrival: ambulatory <Vivek Xie PA-C - Last Filed: 11/01/19 16:39> Limitations: no limitations <Vivek Xie PA-C - Last Filed: 11/01/19 16:39> History of Present Illness HPI Narrative: Patient is a 49-year-old male who presents to emergency department for evaluation of tingling of the upper and lower extremities which has been present for the last 10 days worse in the extremities also occurring in the upper extremities was unsure as to whether or not he could have possibly be anxiety. Patient on arrival notes mild tingling denies other complaints or symptoms does note history of anxiety and is otherwise resting comfortably in the room in no distress upon arrival has not taken anything for his symptoms patient also notes he has a calcaneal fracture being followed by ortho at [facility]. patient notes he took his splint off due to odor for the last several days and would also like to be resplinted <Vivek Xie PA-C - Last Filed: 11/01/19 16:39> Related Data Allergies/Adverse Reactions: Allergies Allergy/AdvReac Type Severity Reaction Status Date / Time Sulfa (Sulfonamide Allergy Mild Rash Verified 11/01/19 14:21 Antibiotics) <Vivek Xie PA-C - Last Filed: 11/01/19 16:39> Review of Systems Review of Systems: All systems reviewed & are unremarkable except as noted in HPI and below <Vivek Xie PA-C - Last Filed: 11/01/19 16:39> PMFSH Past Medical History Medical History: Medical History Allergy to sulfa drugs Asthma <Vivek Xie PA-C - Last Filed: 11/01/19 16:39> Surgical History Surgical History: Surgical History H/O inguinal hernia repair History of vasectomy <Vivek Xie PA-C - Last Filed: 11/01/19 16:39> Social History Social History: Social History Smoking status: Never smoker Alcohol intake: former Substance use: never Gender identity (if verbalized by the patient): Male Spiritual care concerns: No <Vivek Xie PA-C - Last Filed: 11/01/19 16:39> Exam Narrative: Exam Narrative: GENERAL: Well-appearing, morbid obese, and in no acute distress. HEAD: Normocephalic, atraumatic. EYES: PERRLA and EOMI. ENT: Nares clear, no rhinorrhea or epistaxis. Mucous membranes moist. CHEST: Clear to auscultation. No respiratory distress. No wheezes rales or rhonchi HEART: Regular rate and rhythm. No murmur heard. Normal peripheral pulses. EXTREMITIES: Normal range of motion. No edema. SKIN: Warm, dry, no rash. NEURO: No focal deficits. Alert and oriented x3. Cranial nerves II through XII grossly intact PSYCH: Normal mood and affect. <Vivek Xie PA-C - Last Filed: 11/01/19 16:39> Course Vital Signs Vital signs: Vital Signs Temperature 36.8 C 11/01/19 14:17 Pulse Rate 98 11/01/19 14:17 Respiratory Rate 24 H 11/01/19 14:17 Blood Pressure 148/94 H 11/01/19 14:17 Pulse Oximetry 98 11/01/19 14:17 Temperature 36.7 C 11/01/19 16:42 Pulse Rate 94 11/01/19 16:42 Respiratory Rate 16 11/01/19 16:42 Blood Pressure 161/100 H 11/01/19 16:42 Pulse Oximetry 96 11/01/19 16:42 <Vivek Xie PA-C - Last Filed: 11/01/19 16:39> Vital Signs Temperature 36.8 C 11/01/19 14:17 Pulse Rate 98 11/01/19 14:17 Respiratory Rate 24 H 11/01/19 14:17 Blood Pressure 148/94 H 11/01/19
[2019-11-01 15:20] LABS: Troponin I < 0.012 ng/mL (0.000-0.034)
[2019-11-01 15:48] VITALS: BP 156/95; PULSE 100; RESP 16; TEMP 36.8; O2SAT 98
--- NOTE | 2019-11-01 16:07 | PC.NURSE ---
Urine obtained and sent to lab at this time.
[2019-11-01 16:21] LABS: Add Urine Microscopic? NO; Appearance Urine Clear (Clear); Bilirubin Urine Negative (Negative); Blood Urine Negative (Negative); Color Urine Straw (Yellow); Glucose Urine UA Negative (Negative); Ketones Urine Negative (Negative); Leukocyte Esterase Ur Negative LEU/UL (Negative); Nitrate Urine Negative (Negative); Protein Urine Negative (Negative); Specific Grav Ur 1.012 (1.001-1.035); Urobilinogen Urine Negative mg/dL (<2.0)
[2019-11-01 16:36] LABS: Amphetamine Screen Urine Negative (Negative); Barbiturate Screen Urine Negative (Negative); Benzodiazepines Screen Urine Negative (Negative); Cannabinoid Screen Urine Negative (Negative); Cocaine Screen Urine Negative (Negative); Methadone Screen Urine Negative (Negative); Opiate Screen Urine Negative (Negative); Phencyclidine Screen Urine Negative (Negative)
[2019-11-01 16:42] VITALS: BP 161/100; PULSE 94; RESP 16; TEMP 36.7; O2SAT 96
[2019-11-01 17:25] VITALS: BP 168/97; PULSE 98; RESP 22; TEMP 36.8; O2SAT 97
== END 2019-11-01 17:25 | disposition home or self-care (01) ==
PROVIDERS: Emergency Medicine Emergency Medical Services; Emergency Provider Emergency Medicine; PCP Physician Assistant
DX: R20.2 Paresthesia of skin (principal); J45.909 Unspecified asthma, uncomplicated; R94.31 Abnormal electrocardiogram [ECG] [EKG]
CPT/HCPCS: 36415; 80048; 80307; 81003; 84484; 85025; 85610; 85730; 93005; 96374; 99284; J2060

== ENCOUNTER 2020-06-07 13:33 | Emergency (ER) | payer OTHER, SELFPAY ==
--- NOTE | ~2020-06-07 | XR_ITS ---
EXAMINATION: XR chest 2V 06/07/2020 15:13 INDICATION: Hypertension. Dizziness. PROCEDURE: PA and lateral views of the chest COMPARISON: 05/14/2008 FINDINGS: The lungs are clear. The cardiomediastinal silhouette is within normal limits. There are no pleural effusions. There is no pneumothorax suspected. IMPRESSION: 1: NO ACUTE CARDIOPULMONARY DISEASE. Reviewed, dictated and finalized at location A. [employer]
[2020-06-07 14:38] VITALS: BP 158/107; PULSE 93; RESP 18; TEMP 36.4; O2SAT 98
--- NOTE | 2020-06-07 14:44 | ECG_ITS ---
Measurements Intervals [place] Rate: 83 P: 17 [place]: 179 QRS: 48 QRSD: 90 T: 7 QT: 336 QTc: 395 Interpretive Statements SINUS RHYTHM VOLTAGE CRITERIA FOR LVH BORDERLINE ST-T WAVE ABNORMALITY- INFERIOR LEADS BORDERLINE ECG Electronically Signed On 06-07-2020 16:50:25 [employer] by Cayden Schmitz D.O.
[2020-06-07 15:07] LABS: Basophils Absolute Auto 0.1 K/mm3 (0.0-0.1); Basophils Percent Auto 0.6 % (0.2-1.2); Eosinophils Absolute Auto 0.2 K/mm3 (0-0.3); Eosinophils Percent Auto 1.9 % (0-4.4); Hematocrit 46.4 % (42.0-52.0); Hemoglobin 15.2 g/dL (14.0-18.0); Immature Granulocyte Absolute 0.08 K/mm3 (0.00-0.031); Immature Granulocyte Percent A 0.8 % (0-0.5); Lymphocytes Absolute Auto 2.46 K/mm3 (0.9-3.2); Lymphocytes Percent Auto 25.6 % (18.3-44.2); Mean Corpuscular HGB Conc 32.8 g/dl (32-36); Mean Corpuscular Hemoglobin 30.3 pg (26-34); Mean Corpuscular Volume 92.6 fl (80-100); Mean Platelet Volume 9.9 fl (7.4-10.4); Monocytes Absolute Auto 0.6 K/mm3 (0.1-0.6); Monocytes Percent Auto 6.3 % (2.6-8.5); Neutrophils Absolute Auto 6.2 K/mm3 (1.3-6.7); Neutrophils Percent Auto 64.8 % (45.5-73.1); Platelet Count Result 202 k/mm3 (150-375); Red Blood Count 5.01 M/mm3 (4.6-6.20); White Blood Count 9.6 K/mm3 (4.5-10.0)
[2020-06-07 15:12] LABS: Alanine Aminotransferase 28 U/L (4-50); Albumin Level 3.9 g/dL (3.5-5.1); Alkaline Phosphatase 51 U/L (38-126); Anion Gap 6 mmol/L (8-16); Aspartate Amino Transferase 22 U/L (17-59); Bilirubin,Total 0.9 mg/dL (0.2-1.3); Blood Urea Nitrogen 16 mg/dL (9-20); Calcium 9.1 mg/dL (8.4-10.2); Carbon Dioxide 30 mmol/L (22-30); Chloride 102 mmol/L (98-107); Estimated CRCL calculation 92 ml/min; Estimated Glomerular Filt Rate 50; Glucose 115 mg/dL (75-110); Sodium 138 mmol/L (137-145)
--- NOTE | 2020-06-07 15:29 | ED.DIZZY ---
HPI - Dizziness General Chief Complaint: Dizziness Stated Complaint: dizzy, high blood pressure Time Seen by Provider: 06/07/20 15:26 History of Present Illness HPI Narrative: 50 yo male w/ h/o htn, obesity, asthma presents to the ED for dizziness. He reports that he has had multiple episodes of light headedness over the past 2 days. He only has symptoms while standing, which resolve with sitting or lying down. He has also noted some bilateral posterior shoulder pain. He just completed a course of steroids for sinusitis today. BP noted to be very elevated in triage. He was supposed to see his PCP for this today, but came to the ED instead. Related Data Home Medications Medication Instructions Recorded Confirmed budesonide-formoterol [Symbicort] INHALATION 06/07/20 ipratropium-albuterol ml INHALATION 06/07/20 losartan 06/07/20 testosterone cypionate mg 06/07/20 Allergies Allergy/AdvReac Type Severity Reaction Status Date / Time Sulfa (Sulfonamide Allergy Mild Rash Verified 06/07/20 14:43 Antibiotics) Review of Systems Review of Systems: All systems reviewed & are unremarkable except as noted in HPI and below Constitutional: Constitutional: Denies chills, Denies fever(s) and Denies weakness ENT: Reports dizziness, Reports nasal congestion and Denies sore throat Cardiovascular: Cardiovascular: Denies chest pain Respiratory: Respiratory: Denies dyspnea Gastrointestinal: Gastrointestinal: Denies nausea Genitourinary: Genitourinary: Denies oliguria, Denies dysuria and Denies urinary frequency Musculoskeletal: Musculoskeletal: Denies back pain Neurologic: Denies syncope, Denies numbness and Denies weakness Endocrine: Endocrine: Denies polydipsia [facility] Past Medical History Medical History Allergy to sulfa drugs Asthma Surgical History Surgical History H/O inguinal hernia repair History of vasectomy Family History Family History Mother Diabetes mellitus Grandparent Diabetes mellitus Father Coronary artery disease Social History Social History Smoking status: Never smoker Alcohol intake: former Substance use: never Gender identity (if verbalized by the patient): Male Spiritual care concerns: No Exam Const: General: healthy appearing, no acute distress and alert Nutritional Appearance: obese morbidly obese Orientation/consciousness: patient oriented x3 HENMT: Mouth: Yes dry mucous membranes Eyes: Pupils: Equal, round and reactive pupils present EOM: EOMs intact bilaterally Neck: Neck: normal visual inspection Resp: Effort & Inspection: normal respiratory effort Auscultation: clear to auscultation bilaterally Cardio: Rate: regular rate Skin: General skin exam: normal color Neuro: General: patient oriented x3, moves all extremities, no focal motor deficits and CN's II-XI intact bilaterally Cranial nerves: Yes Nystagmus not present Speech: normal speech Gait exam (Neuro): Normal gait present Extrem: General: edema (mild, equal, nontender) Course Vital Signs Vital signs: Vital Signs Temperature 36.4 C L 06/07/20 14:38 Pulse Rate 93 06/07/20 14:38 Respiratory Rate 18 06/07/20 14:38 Blood Pressure 158/107 H 06/07/20 14:38 Pulse Oximetry 98 06/07/20 14:38 Temperature 36.4 C L 06/07/20 14:38 Pulse Rate 93 06/07/20 14:38 Respiratory Rate 18 06/07/20 14:38 Blood Pressure 165/110 H 06/07/20 17:20 Pulse Oximetry 98 06/07/20 14:38 MDM - Dizziness MDM Narrative Medical decision making narrative: Creatinine elevated from baseline. He is likely dehydrate 2/2 to steroid use. Nothing preventing oral hydration. He drank several cups of water. feeling somewhat better. walking with stable gait. PCP contact. Garcia
[2020-06-07] MEDS: amLODIPine BESYLATE 5 MG TABLET PO (16:01)
[2020-06-07 16:24] LABS: Add Urine Microscopic? YES; Appearance Urine Clear (Clear); Bilirubin Urine Negative (Negative); Blood Urine Negative (Negative); Color Urine Yellow (Yellow); Glucose Urine UA Negative (Negative); Ketones Urine Negative (Negative); Leukocyte Esterase Ur Negative LEU/UL (Negative); Mucus Urine Rare /lpf; Nitrate Urine Negative (Negative); Protein Urine Negative (Negative); RBC Urine 0-2 /hpf (0-2); Squamous Epithelial Cell Urine Rare /hpf (Few); Urobilinogen Urine Negative mg/dL (<2.0); WBC Urine 0-3 /hpf
[2020-06-07 17:20] VITALS: BP 165/110
== END 2020-06-07 17:21 | disposition home or self-care (01) ==
PROVIDERS: Emergency Provider Emergency Medicine; PCP Physician Assistant
DX: E86.0 Dehydration (principal); I10 Essential (primary) hypertension; J45.909 Unspecified asthma, uncomplicated; E66.9 Obesity, unspecified; Z68.44 Body mass index [BMI] 60.0-69.9, adult
CPT/HCPCS: 36415; 71046; 80053; 81001; 85025; 93005; 99283; A9270

== ENCOUNTER 2020-12-24 16:18 | Emergency (ER) | payer OTHER, SELFPAY ==
--- NOTE | 2020-12-24 16:23 | ED.UPPEXIN ---
HPI - Extremity Injury (Upper) General Chief Complaint: Extremity Injury, Upper Stated Complaint: lt arm pain Time Seen by Provider: 12/24/20 16:23 Source: patient and RN notes reviewed History of Present Illness HPI narrative: Patient is a 50-year-old male who presents the urgent care with complaints of pain over the left pain in the hand. Patient denies of any known trauma or injury. States that he thought he slept on it wrong . Patient states that he woke up with the pain and noticed increased tenderness when he pressed on the area. Patient states that he has placed ice on the hand without much improvement. States that he has increased pain with making a fist or specific movements of the left hand. No other acute complaints. No acute distress noted. Patient read a plan of care. Some parts of this dictation were generated by voice recognition software and may contain typographical and/or grammatical inaccuracies. Related Data Home Medications Medication Instructions Recorded Confirmed budesonide-formoterol [Symbicort] INHALATION 06/07/20 ipratropium-albuterol ml INHALATION 06/07/20 losartan 06/07/20 testosterone cypionate mg 06/07/20 Allergies Allergy/AdvReac Type Severity Reaction Status Date / Time Sulfa (Sulfonamide Allergy Mild Rash Verified 06/07/20 14:43 Antibiotics) Review of Systems Review of Systems: CONSTITUTIONAL: Denies fever, chills, or sweats. EYES: Denies visual changes, redness, or discharge. ENT: Denies rhinorrhea, congestion, sore throat, or otalgia. CARDIOVASCULAR: Denies chest pain, palpitations, or edema. RESPIRATORY: Denies cough or dyspnea. GASTROINTESTINAL: Denies abdominal pain, nausea, vomiting, or diarrhea. GENITOURINARY: Denies dysuria or hematuria. SKIN: Denies rash or itching. MUSCULOSKELETAL: Reports of tenderness to the left dorsal hand NEUROLOGIC: Denies headache, numbness, or weakness. All other systems reviewed are negative, except as documented in HPI. [facility] Past Medical History Medical History (Updated 12/24/20 @ 16:33 by KAREN Boone) Allergy to sulfa drugs Asthma Surgical History Surgical History H/O inguinal hernia repair History of vasectomy Family History Family History Mother Diabetes mellitus Grandparent Diabetes mellitus Father Coronary artery disease Social History Social History Smoking status: Never smoker Alcohol intake: former Alcohol use details: social Substance use: never Gender identity (if verbalized by the patient): Male Spiritual care concerns: No Comments At the time of my signature, I reviewed and agree with the nursing past medical, surgical, social, and family history. There is no relevant family history pertinent to the patient complaint. Exam Narrative: GENERAL: This is a well-nourished, well-developed patient, in no apparent distress. HEAD: normocephalic, atraumatic. EYES: PERRL. Sclera clear/white. Vision is grossly intact. EARS: External ears normal NOSE: External nose normal with no obvious nasal discharge, nares without redness, no rhinorrhea. THROAT: Mucous membranes moist NECK: Neck supple, CARDIOVASCULAR: Regular rate and rhythm without murmurs, gallops, or rubs. RESPIRATORY: Clear to auscultation. Breath sounds equal bilaterally. No wheezes, rales, or rhonchi. SKIN: warm, intact with no suspicious lesions or rash, good texture and turgor. NEURO: awake, alert, and oriented to person, place and time. There were no obvious focal neurologic abnormalities. EXTREMITIES: 1 cm irregular area of ecchymosis noted to the dorsal left hand with moderate tenderness. No surrounding erythema or obvious deformity or injury to the left upper extremity. Positive strong left radial pulse with capillary refill less than 2 seconds. R
[2020-12-24 16:28] VITALS: BP 171/95; PULSE 95; RESP 16; TEMP 36.6; O2SAT 99
== END 2020-12-24 16:37 | disposition home or self-care (01) ==
PROVIDERS: Emergency Provider Nurse Practitioner Family; PCP Physician Assistant
DX: S60.222A Contusion of left hand, initial encounter (principal); X58.XXXA Exposure to other specified factors, initial encounter
CPT/HCPCS: 99212; G0463